=== PATIENT | female | born 2000 | race Caucasian/White ===

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

== ENCOUNTER 2021-04-20 15:39 | Outpatient (CLI) | payer BC, SELFPAY ==
--- NOTE | ~2021-04-20 | XR_ITS ---
EXAMINATION: XR ankle RT min 3V, XR foot RT min 3V DATE: 04/20/2021 16:07 INDICATION: 2 weeks of nontraumatic lateral right foot and ankle pain TECHNIQUE: 1. Anteroposterior, mortise, additional oblique and lateral view of the right ankle were obtained. 2. Dorsoplantar, two oblique and lateral views of the right foot were obtained. COMPARISON: None. FINDINGS: Alignment of the right foot and ankle is normal. No fracture or osteochondral lesion. Joint spaces ar e well maintained. Small osteophyte and tiny heterotopic ossicle along the anterior margin of the tib ial plafond. No cortical erosions or periosteal reaction. No ankle joint effusion. Mild soft tissue s welling over the dorsolateral aspect of the midfoot. IMPRESSION: 1. Nonspecific mild soft tissue swelling of the dorsolateral aspect of the midfoot. No osseous abnorm ality. Reviewed, dictated and finalized at location A. IMPRESSION: 1. Nonspecific mild soft tissue swelling of the dorsolateral aspect of the midf oot. No osseous abnormality.
== END 2021-04-20 15:40 | disposition home or self-care (01) ==
PROVIDERS: PCP Pediatrics; Visit Provider Pediatrics
DX: S99.921A Unspecified injury of right foot, initial encounter (principal); X58.XXXA Exposure to other specified factors, initial encounter; M79.89 Other specified soft tissue disorders
CPT/HCPCS: 73610; 73630